=== PATIENT | female | born 1980 | race Caucasian/White ===

== ENCOUNTER 2019-10-07 10:04 | Emergency (ER) | payer SELFPAY ==
--- OUTSIDE RECORDS SUMMARY | 2019-10-07 10:06 | XMS REPORT ---
:1980 [facility] Address [address] Ling [address] [place] [id number] Care Team Providers Name Role Phone Unavailable Unavailable Unavailable Problems This patient has no known problems. Allergies, Adverse Reactions, Alerts This patient has no known allergies or adverse reactions. Medications This patient has no known medications. Encounters Start End Encounter Admission Attending Care Care Encounter Date/Time Date/Time Type Type Clinicians Facility Department ID 2018-12-19 2018-12-19 Emergency E [facility] [id number] 23:32:00 23:32:00 2017-05-17 2017-05-26 [facility] [id number] 00:00:00 00:00:00
[2019-10-07] MEDS ORDERED: KETOROLAC 30 MG/ML INJ ONE (10:35)
[2019-10-07 11:02] LABS: Urine Blood TRACE (NEG); Urine Glucose NEGATIVE (NEG); Urine Protein NEGATIVE (NEG)
[2019-10-07 11:02] LABS: Urine Amorphous Sediment 2+ /HPF (NONE SEEN); Urine Bacteria 20-50 /HPF (<20); Urine Culture Reflex Order REFLEXED; Urine RBC NONE SEEN /HPF (NONE SEEN)
--- NOTE | 2019-10-07 11:46 | RAD REPORT ---
EXAM DESCRIPTION: US - Transvaginal Study Probe - 10/07/2019 11:31 am CLINICAL HISTORY: ABD PAIN Pelvic pain. COMPARISON: No comparisons FINDINGS: The uterus is normal in size, shape and echotexture. Focal rounded protuberance is seen th e anterior myometrium measuring 3 cm which may represent a submucosal fibroid or an adenomyoma. The u terus measures 8.5 x 5.0 cm. The endometrial stripe measures 4 mm, normal. Both ovaries are normal in size, shape and echotexture. The right ovary measures 2.6 x 2.4 cm. The left ovary measures 2.3 x 2.1 cm. No ovarian or parovarian lesions. No adnexal masses. Normal Doppler blood flow was demonstrated to both ovaries. No significant pelvic ascites. IMPRESSION: No acute abnormality detected. 3 cm area of protuberance involving the midbody anterior uterine myometrium may represent a fibroid o r adenomyoma.
--- NOTE | 2019-10-07 13:07 | RAD REPORT ---
EXAM DESCRIPTION: CT - Stone Protocol - 10/07/2019 12:58 pm CLINICAL HISTORY: Flank pain. ABD PAIN COMPARISON: No comparisons TECHNIQUE: Axial images were obtained without oral or IV contrast. Lack of contrast limits solid org an and vascular assessment. The [id number] spans the entirety of the system partially obscuring uppermost abdomen and lung bases. Coronal reformatted images were obtained and reviewed. All CT scans are performed using dose optimization technique as appropriate and may include automated exposure control or mA/KV adjustment according to patient size. FINDINGS: The lower lung cormier are clear. Imaged portions of the liver and spleen show no suspicious findings on non-contrast imaging. The panc reas and adrenal glands are normal. No pathologic lymphadenopathy in the abdomen or pelvis. Numerous small caliceal stones are present involving both kidneys with medullary hyperdensity also se en. Bilateral renal cysts also present. No hydronephrosis evident. No obstructing stone in the ureter identified on either side. A bladder calculus is not identified. No bowel obstruction, free air, free fluid or abscess. Normal appendix noted.Prominent amount of stoo l is present in the colon. No significant bony abnormality. IMPRESSION: Small caliceal stones are present in both kidneys with medullary nephrocalcinosis also s een. Benign appearing renal cysts are also present bilaterally. No obstructing calculus or hydronephrosis seen. Prominent stool is retained in the colon.
--- NOTE | 2019-10-07 13:17 | ER ---
Nurse's Notes [facility] Name: Didi Johnson Age: 38 yrs Sex: Female : 1980 Arrival Date: 10/07/2019 Time: 10:07 Bed 8 Private MD: Diagnosis: Abdominal and pelvic pain;Urinary tract infection, site not specified;Constipation, unspecified Presentation: 10/07 10:16 Presenting complaint: LLQ pain x 3 days. Denies fever/N/V/D. Hx of bilateral inguinal hb hernia repair in 1999. Transition of care: patient was not received from another setting of care. Onset of symptoms was October 04, 2019. Risk Assessment: Do you want to hurt yourself or someone else? Patient reports no desire to harm self or others. Care prior to arrival: Medication(s) given: Motrin, at 0630 today. 10:16 Method Of Arrival: Ambulatory hb 10:16 Acuity: TI 3 hb 13:43 Initial Sepsis Screen: Does the patient meet any 2 criteria? No. Patient's initial jl7 sepsis screen is negative. Does the patient have a suspected source of infection? No. Patient's initial sepsis screen is negative. 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 - Social history:: Smoking status: Patient/guardian denies using tobacco. - Ebola Screening: : No symptoms or risks identified at this time. Screenin:39 Abuse screen: Denies threats or abuse. Denies injuries from another. Nutritional iw screening: No deficits noted. Tuberculosis screening: No symptoms or risk factors identified. Fall Risk None identified. Assessment: 10:38 General: Appears in no apparent distress. Behavior is calm, cooperative. Pain: iw Complains of pain in left lower quadrant Quality of pain is described as sharp. Neuro: Level of Consciousness is awake, alert, obeys commands, Oriented to person, place, time, situation, Moves all extremities. Full function. Cardiovascular: Patient's skin is warm and dry. Respiratory: Respiratory effort is even, unlabored, Respiratory pattern is regular, symmetrical. GI: Bowel sounds present X 4 quads. Abd is soft X 4 quads Abdomen is tender to palpation in left lower quadrant. Derm: Skin is intact, is healthy with good turgor. Musculoskeletal: Range of motion: intact in all extremities. 11:45 Reassessment: Patient appears in no apparent distress at this time. Patient and/or iw family updated on plan of care and expected duration. Pain level reassessed. Patient is alert, oriented x 3, equal unlabored respirations, skin warm/dry/pink. pt states pain has decreased, now is only throbbing. 13:07 Reassessment: Patient appears in no apparent distress at this time. Patient and/or iw family updated on plan of care and expected duration. Pain level reassessed. Patient is alert, oriented x 3, equal unlabored respirations, skin warm/dry/pink. Vital Signs: 10:18 BP 124 / 74; Pulse 63; Resp 16; Temp 98.2; Pulse Ox 100% on R/A; Weight 58.97 kg; hb Height 5 ft. (152.40 cm); Pain 6/10; 11:45 BP 112 / 87; Pulse 55; Resp 16; Pulse Ox 100% on R/A; Pain 2/10; iw 12:41 BP 105 / 66; Pulse 52; Resp 16 S; Pulse Ox 99% on R/A; jl7 10:18 Body Mass Index 25.39 (58.97 kg, 152.40 cm) hb ED Course: 10:07 Patient arrived in ED. mr 10:17 Triage completed. hb 10:18 Arm band placed on. hb 10:21 Sharon Esparza, RN is Primary Nurse. iw 10:22 Miroslava Alvarez FNP-C is PHCP. kb 10:22 Manuel Verma MD is Attending Physician. kb 10:41 Patient has correct armband on for positive identification. Placed in gown. Bed in low mh5 position. Call light in reach. Pulse ox on. NIBP on. 11:14 US Transvaginal Study (Probe) In Process Unspecified. EDMS 13:00 CT Stone Protocol In Process Unspecified. EDMS 13:42 No provider procedures requiring assistance completed. Patient did not have IV access jl7 during this emergency room visit. Administered Medications: 10:37 Drug: TORadol 30 mg Route: IM; Site: right deltoid; iw 11:59 Follow up: Response: No adverse reaction; Pain is decreased iw Outcome: 13:16 Discharge ordered by MD. fisher 13:42 Discharged to home ambulatory. jl7 13:42 Condition: stable 13:42 Discharge instructions given to patient, Instructed on discharge instructions, follow up and referral plans. medication usage, Demonstrated understanding of instructions, follow-up care, medications, Prescriptions given X 1. 13:43 Patient left the ED. jl7 Signatures: Dispatcher [employer] EDMS Miroslava Alvarez, SALES PROGRAM MANAGER-C SALES PROGRAM MANAGER-CkMolly Womack mr Sharon Esparza RN RN iw Baxter, Heather, RN RN Jillian Callahan [facility] Vivien Sharpe RN RN jl7
--- NOTE | 2019-10-07 13:18 | EDPHYS ---
Physician Documentation [facility] Name: Didi Johnson Age: 38 yrs Sex: Female : 1980 Arrival Date: 10/07/2019 Time: 10:07 Bed 8 Private MD: ED Physician Manuel Verma HPI: 10/07 10:47 This 38 yrs old Female presents to ER via Ambulatory with complaints of kb Abdominal Pain. 10:47 The patient presents with pelvic pain, that is located in/on the left inguinal area, kb the pain does not radiate, the pain is described as constant, "stinging". Onset: The symptoms/episode began/occurred 3 day(s) ago. Modifying factors: The symptoms are alleviated by nothing, the symptoms are aggravated by pressure. Associated signs and symptoms: The patient has no apparent associated signs or symptoms. Severity of symptoms: At their worst the symptoms were moderate, in the emergency department the symptoms are unchanged. The patient has experienced a previous episode, and the symptoms today are exactly the same, same thing happened 3-4 weeks ago and lasted for 5 days, then resolved. . The patient has not recently seen a physician. 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 - Social history:: Smoking status: Patient/guardian denies using tobacco. - Ebola Screening: : No symptoms or risks identified at this time. ROS: 10:45 Constitutional: Negative for fever, chills, and weight loss, ENT: Negative for injury, kb pain, and discharge, Neck: Negative for injury, pain, and swelling, Cardiovascular: Negative for chest pain, palpitations, and edema, Respiratory: Negative for shortness of breath, cough, wheezing, and pleuritic chest pain, Abdomen/GI: Negative for abdominal pain, nausea, vomiting, diarrhea, and constipation, Back: Negative for injury and pain, MS/Extremity: Negative for injury and deformity, Skin: Negative for injury, rash, and discoloration, Neuro: Negative for headache, weakness, numbness, tingling, and seizure. 10:45 : Positive for pelvic pain, of the left inguinal area. Exam: 10:45 Constitutional: This is a well developed, well nourished patient who is awake, alert, kb and in no acute distress. Head/Face: Normocephalic, atraumatic. ENT: Nares patent. No nasal discharge, no septal abnormalities noted. Tympanic membranes are normal and external auditory canals are clear. Oropharynx with no redness, swelling, or masses, exudates, or evidence of obstruction, uvula midline. Mucous membranes moist. Neck: Trachea midline, no thyromegaly or masses palpated, and no cervical lymphadenopathy. Supple, full range of motion without nuchal rigidity, or vertebral point tenderness. No Meningismus. Chest/axilla: Normal chest wall appearance and motion. Nontender with no deformity. No lesions are appreciated. Cardiovascular: Regular rate and rhythm with a normal S1 and S2. No gallops, murmurs, or rubs. Normal PMI, no JVD. No pulse deficits. Respiratory: Lungs have equal breath sounds bilaterally, clear to auscultation and percussion. No rales, rhonchi or wheezes noted. No increased work of breathing, no retractions or nasal flaring. Abdomen/GI: Soft, non-tender, with normal bowel sounds. No distension or tympany. No guarding or rebound. No evidence of tenderness throughout. Moderate tenderness to left inguinal area Back: No spinal tenderness. No costovertebral tenderness. Full range of motion. Skin: Warm, dry with normal turgor. Normal color with no rashes, no lesions, and no evidence of cellulitis. MS/ Extremity: Pulses equal, no cyanosis. Neurovascular intact. Full, normal range of motion. Neuro: Awake and alert, GCS 15, oriented to person, place, time, and situation. Cranial nerves II-XII grossly intact. Motor strength 5/5 in all extremities. Sensory grossly intact. Cerebellar exam normal. Normal gait. Vital Signs: 10:18 BP 124 / 74; Pulse 63; Resp 16; Temp 98.2; Pulse Ox 100% on R/A; Weight 58.97 kg; hb Height 5 ft. (152.40 cm); Pain 6/10; 11:45 BP 112 / 87; Pulse 55; Resp 16; Pulse Ox 100% on R/A; Pain 2/10; iw 12:41 BP 105 / 66; Pulse 52; Resp 16 S; Pulse Ox 99% on R/A; jl7 10:18 Body Mass Index 25.39 (58.97 kg, 152.40 cm) hb MDM: 10:22 Patient medically screened. kb 10:45 Data reviewed: vital signs, nurses notes. Data interpreted: Pulse oximetry: on room air kb is 100 %. Interpretation: normal. 13:15 Counseling: I had a detailed discussion with the patient and/or guardian regarding: the kb historical points, exam findings, and any diagnostic results supporting the discharge/admit diagnosis, lab results, radiology results, the need for outpatient follow up, a family practitioner, to return to the emergency department if symptoms worsen or persist or if there are any questions or concerns that arise at home. 10/07 10:34 Order name: Urine Microscopic Only; Complete Time: 11:05 kb 10/07 10:35 Order name: Urine Dipstick--Ancillary (enter results); Complete Time: 11:05 bd 10/07 10:33 Order name: US Transvaginal Study (Probe); Complete Time: 11:49 kb 10/07 10:35 Order name: Urine --Ancillary (enter results); Complete Time: 11:05 bd 10/07 11:15 Order name: Urine Culture EDPR 10/07 12:33 Order name: CT Stone Protocol; Complete Time: 13:10 kb 10/07 10:34 Order name: Urine Dipstick-Ancillary (obtain specimen); Complete Time: 10:35 kb Administered Medications: 10:37 Drug: TORadol 30 mg Route: IM; Site: right deltoid; iw 11:59 Follow up: Response: No adverse reaction; Pain is decreased iw Disposition: 19:01 Co-signature as Attending Physician, Manuel Verma MD Signing chart for administrative ps1 purposes. Available for consultation in ED. . Disposition: 10/07/19 13:16 Discharged to Home. Impression: Abdominal and pelvic pain, Urinary tract infection, site not specified, Constipation, unspecified. - Condition is Stable. - Discharge Instructions: Pelvic Pain, Female, [id number], Constipation, Adult, [id number], Urinary Tract Infection, Adult, [id number]. - Prescriptions for Macrobid 100 mg Oral Capsule - take 1 capsule by ORAL route every 12 hours for 7 days; 14 capsule. - Work release form, Medication Reconciliation Form, Thank You Letter, Antibiotic Education, Prescription Opioid Use form. - Follow up: Private Physician; When: 2 - 3 days; Reason: Recheck today's complaints, Continuance of care, Re-evaluation by your physician. Follow up: Emergency Department; When: As needed; Reason: Worsening of condition. Signatures: Dispatcher [employer] EDPR Miroslava Alvarez, BRANDO-Jordyn WALKERP-Sharon Nolen, RN RN iw Alicia Lee, RN RN hb Vivien Sharpe RN RN jl7 Manuel Verma MD MD ps1 Corrections: (The following items were deleted from the chart) 13:43 13:16 10/07/2019 13:16 Discharged to Home. Impression: Abdominal and pelvic pain; jl7 Urinary tract infection, site not specified; Constipation, unspecified. Condition is Stable. Forms are Medication Reconciliation Form, Thank You Letter, Antibiotic Education, Prescription Opioid Use. Follow up: Private Physician; When: 2 - 3 days; Reason: Recheck today's complaints, Continuance of care, Re-evaluation by your physician. Follow up: Emergency Department; When: As needed; Reason: Worsening of condition. kb
[2019-10-07 14:34] VITALS: TEMP 98.2
[2019-10-07 14:37] VITALS: BP 105/66; O2SAT 99
== END 2019-10-07 13:43 | disposition home or self-care (01) ==
LOC: ER 10:04
DX: N39.0 Urinary tract infection, site not specified (principal); K59.00 Constipation, unspecified
CPT/HCPCS: 74176; 76377; 76830; 81003; 81015; 81025; 87086; 87088; 96372; 99284